=== PATIENT | female | born 1960 ===

== ENCOUNTER 2020-07-08 20:32 | Emergency (ER) | payer SELFPAY ==
[2020-07-08 21:16] LABS: Hemoglobin 13.5 g/dL (12.0-16.0); Mean Corpuscular HGB CONC 34.3 g/dL (32.0-36.0); Mean Corpuscular Volume 90.4 fL (78.0-98.0); Mean Platelet Volume 9.6 fL (7.4-10.4); Platelet Count 89 thou/uL (130-400); Red Blood Cell (RBC) Count 4.36 mill/uL (4.20-5.40); White Blood Cell (WBC) Count 4.5 thou/uL (4.8-10.8)
[2020-07-08 21:27] LABS: #Eosinphils 0.1 thou/uL (0.0-0.7); #Lymphocytes 1.4 thou/uL (1.20-3.40); #Monocytes 0.2 thou/uL (0.11-0.59); #Neutrophils 2.9 thou/uL (1.40-6.50); %Basophils 0.4 % (0.0-1.0); %Eosinophils 1.4 % (0.0-10.0); %Lymphocytes 30.8 % (21.0-51.0); %Monocytes 4.1 % (0.0-10.0); %Neutrophils 63.3 % (42.0-75.0); Platelet Morphology Comment Appears Decreased
[2020-07-08 21:29] LABS: ALT (SGPT) 21 U/L (8-55); AST (SGOT) 29 U/L (5-34); Albumin 3.9 g/dL (3.5-5.0); Alkaline Phosphatase 100 U/L (40-110); Anion Gap 14 mmol/L (10-20); BUN (Urea Nitrogen) 13 mg/dL (9.8-20.1); Bilirubin, Total 0.6 mg/dL (0.2-1.2); Calc. Creatinine Clearance 0 mL/min (70-130); Calcium 9.4 mg/dL (7.8-10.44); Carbon Dioxide 25 mmol/L (22-29); Chloride 104 mmol/L (98-107); Estimated GFR-MDRD 64; Globulin 3.7 g/dL (2.4-3.5); Glucose 322 mg/dL (70-105); Protein, Total 7.6 g/dL (6.0-8.3); Sodium 139 mmol/L (136-145)
--- NOTE | 2020-07-08 21:29 | RAD ---
CHEST ONE VIEW: 07/08/20 HISTORY: Chest pain. COMPARISON: None. FINDINGS: Abnormal fullness along the right hilum with a well-defined right sided convexed curvature. Heart siz e is moderate. No pneumothorax. No effusion. No acute osseous abnormality. IMPRESSION: Abnormal curvilinear density along the right hilum which is not felt to be within the lung itself. No nemergent CT of the chest recommended for further evaluation. POS: HOME
== END 2020-07-08 22:12 | disposition home or self-care (01) ==
LOC: ERS 20:32
DX: R07.9 Chest pain, unspecified (principal); E11.9 Type 2 diabetes mellitus without complications; I10 Essential (primary) hypertension
CPT/HCPCS: 36415; 71045; 80053; 83880; 84484; 85025; 93005